=== PATIENT | male | born 1980 | race Caucasian/White ===

== ENCOUNTER 2023-07-12 09:06 | Emergency (ER) | payer OTHER ==
[2023-07-12] MEDS ORDERED: Albuterol/Ipratropium 3.0-0.5 MG/3 ML Neb Soln NEB ONE (09:55)
[2023-07-12] MEDS ORDERED: predniSONE 20 MG Tab ONE (10:08)
[2023-07-13] MEDS ORDERED: predniSONE 20 MG Tab PO SCH (08:00)
== END 2023-07-12 11:27 | disposition home or self-care (01) ==
LOC: JP.ED 09:06
DX: J45.909 Unspecified asthma, uncomplicated (principal)
CPT/HCPCS: 94640; 99283; J7512; J7620